=== PATIENT | male | born 1975 | race African-American/Black ===

== ENCOUNTER 2017-12-29 05:45 | Emergency (ER) | payer SELFPAY | END 2017-12-29 06:13 | disposition home or self-care (01) | LOC: MADERS 05:45 | DX: K03.81 Cracked tooth (principal); K04.7 Periapical abscess without sinus; K02.9 Dental caries, unspecified; I10 Essential (primary) hypertension; E11.9 Type 2 diabetes mellitus without complications | CPT/HCPCS: 99282 ==

== ENCOUNTER 2018-12-03 17:22 | Emergency (ER) | payer SELFPAY ==
[2018-12-03] MEDS ORDERED: Ibuprofen 800 MG TAB ONE (18:01)
--- NOTE | 2018-12-03 18:23 | RAD ---
RIGHT CLAVICLE: Two views 12/03/09 HISTORY: Injury. AC joint appears normally aligned. The clavicle appears intact. IMPRESSION: No acute clavicle fracture identified. POS: [facility]
== END 2018-12-03 18:20 | disposition home or self-care (01) ==
LOC: MADERS 17:22
DX: S46.911A Strain of unspecified muscle, fascia and tendon at shoulder and upper arm level, right arm, initial encounter (principal); E11.9 Type 2 diabetes mellitus without complications; I10 Essential (primary) hypertension; E78.00 Pure hypercholesterolemia, unspecified; Z79.84 Long term (current) use of oral hypoglycemic drugs; Z79.899 Other long term (current) drug therapy; W23.0XXA Caught, crushed, jammed, or pinched between moving objects, initial encounter; Y99.0 Civilian activity done for income or pay

== ENCOUNTER 2019-10-22 19:24 | Emergency (ER) | payer SELFPAY | END 2019-10-22 20:05 | disposition home or self-care (01) | LOC: MADERS 19:24 | DX: S39.012A Strain of muscle, fascia and tendon of lower back, initial encounter (principal); E11.9 Type 2 diabetes mellitus without complications; I10 Essential (primary) hypertension; E78.00 Pure hypercholesterolemia, unspecified; Z79.899 Other long term (current) drug therapy; Z79.84 Long term (current) use of oral hypoglycemic drugs; V59.9XXA Occupant (driver) (passenger) of pick-up truck or van injured in unspecified traffic accident, initial encounter; Y99.8 Other external cause status | CPT/HCPCS: 99283 ==

== ENCOUNTER 2019-11-13 23:11 | Emergency (ER) | payer SELFPAY ==
--- NOTE | 2019-11-13 23:40 | RAD ---
Right ankle 3 views HISTORY: Right ankle injury. FINDINGS: Ankle mortise and talar dome are intact. A smoothly marginated vertically oriented oval amanda cification overlying the medial ankle mortise on the frontal view is favored to represent a phlebolith. Soft tissue swelling is evident over the medial aspect of the hindfoot. No acute fracture or dislocation. Calcification over the arterial structures. IMPRESSION : No acute osseous abnormalities are demonstrated. Atherosclerosis.
== END 2019-11-13 23:40 | disposition home or self-care (01) ==
LOC: MADERS 23:11
DX: S93.401A Sprain of unspecified ligament of right ankle, initial encounter (principal); E11.9 Type 2 diabetes mellitus without complications; I10 Essential (primary) hypertension; E78.00 Pure hypercholesterolemia, unspecified; Z79.84 Long term (current) use of oral hypoglycemic drugs; Z79.899 Other long term (current) drug therapy; X50.1XXA Overexertion from prolonged static or awkward postures, initial encounter

== ENCOUNTER 2020-01-18 21:43 | Emergency (ER) | payer OTHER ==
[2020-01-18] MEDS ORDERED: Proparacaine 0.5% Opth 15 ML BOT ONE (21:57)
[2020-01-18] MEDS ORDERED: Tetracaine 0.5% OPHTH SOLN/PF 4 ML BOT ONE (21:58)
[2020-01-18] MEDS ORDERED: Fluorescein Opthalmic Strip ONE (21:59)
[2020-01-18] MEDS ORDERED: Ibuprofen 800 MG TAB ONE (22:58)
[2020-01-18] MEDS ORDERED: Tobramycin Sulfate 0.3% Ophth Susp 5 ml Bottle ONE (23:05)
== END 2020-01-18 23:23 | disposition home or self-care (01) ==
LOC: MADERS 21:43
DX: H20.9 Unspecified iridocyclitis (principal); E11.9 Type 2 diabetes mellitus without complications; I10 Essential (primary) hypertension; E78.00 Pure hypercholesterolemia, unspecified; Z79.84 Long term (current) use of oral hypoglycemic drugs; Z79.899 Other long term (current) drug therapy
CPT/HCPCS: 99283

== ENCOUNTER 2020-05-29 12:48 | Emergency (ER) | payer OTHER ==
[2020-05-29] MEDS ORDERED: Sulfameth/Trimethoprim DS 800-160mg TAB ONE (13:56)
[2020-05-30 15:35] LABS: SARS-CoV-2 MS2 Positive; SARS-CoV-2 N Gene Positive; SARS-CoV-2 S Gene Positive; SARS-CoV-2 by NAA DETECTED (NotDetected); SARS-CoV-2 orf1ab Positive
== END 2020-05-29 14:34 | disposition left against medical advice (07) ==
LOC: MADERS 12:48
DX: U07.1 COVID-19 (principal); L02.211 Cutaneous abscess of abdominal wall; R00.0 Tachycardia, unspecified; E11.9 Type 2 diabetes mellitus without complications; I10 Essential (primary) hypertension; E78.00 Pure hypercholesterolemia, unspecified; Z79.4 Long term (current) use of insulin; Z79.899 Other long term (current) drug therapy
CPT/HCPCS: 87635; 99283; U0003

== ENCOUNTER 2020-11-20 05:47 | Emergency (ER) | payer OTHER ==
[2020-11-20] MEDS ORDERED: Fluorescein Opthalmic Strip ONE (05:50)
[2020-11-20] MEDS ORDERED: Tetracaine 0.5% PF 4 ML BOT ONE (05:50)
[2020-11-20] MEDS ORDERED: Tobramycin Sulfate 0.3% Ophth Susp 5 ml Bottle ONE (06:11)
== END 2020-11-20 06:22 | disposition home or self-care (01) ==
LOC: MADERS 05:47
DX: S05.02XA Injury of conjunctiva and corneal abrasion without foreign body, left eye, initial encounter (principal); I10 Essential (primary) hypertension; E11.9 Type 2 diabetes mellitus without complications; Z79.4 Long term (current) use of insulin; E78.00 Pure hypercholesterolemia, unspecified; Z79.899 Other long term (current) drug therapy; W22.8XXA Striking against or struck by other objects, initial encounter
CPT/HCPCS: 99283

== ENCOUNTER 2021-07-25 18:41 | Emergency (ER) | payer OTHER | END 2021-07-25 20:28 | disposition left against medical advice (07) | LOC: MADERS 18:41 | DX: Z53.21 Procedure and treatment not carried out due to patient leaving prior to being seen by health care provider (principal) ==

== ENCOUNTER 2023-09-13 21:27 | Emergency (ER) | payer BC, OTHER, SELFPAY | END 2023-09-13 21:55 | disposition home or self-care (01) | LOC: MADERS 21:27 | DX: L03.011 Cellulitis of right finger (principal); E11.9 Type 2 diabetes mellitus without complications; I10 Essential (primary) hypertension | CPT/HCPCS: 99283 ==

== ENCOUNTER 2024-02-19 21:20 | Emergency (ER) | payer BC, SELFPAY ==
[2024-02-19] MEDS ORDERED: Benzonatate 100 MG CAP ONE (21:58)
== END 2024-02-19 23:02 | disposition home or self-care (01) ==
LOC: MADERS 21:20
DX: J06.9 Acute upper respiratory infection, unspecified (principal); E11.9 Type 2 diabetes mellitus without complications; I10 Essential (primary) hypertension
CPT/HCPCS: 71045